=== PATIENT | female | born 1990 | race Caucasian/White ===

== ENCOUNTER 2016-09-09 02:45 | Emergency (ER) | payer MEDICAID ==
[~2016-09-09] VITALS: Ht 162.6 cm; Wt 60.8 kg
[2016-09-09 03:03] VITALS: BP 109/53
[2016-09-09] MEDS ORDERED: PRON INH (03:08)
--- NOTE | 2016-09-09 03:10 | NUR ---
PT TAKEN TO BED 4
--- NOTE | 2016-09-09 03:12 | NUR ---
Dr. Thompson evaluating patient at bedside.
--- NOTE | 2016-09-09 03:14 | NUR ---
PT BIB FAMILY C/O RT EYE PAIN X 1 DAY, INSOMINA X 2-SMOKED CRYSTAL METH, MARIJUANA. PAIN 8/10. PT DENIES N/V/D; SKIN IS INTACT, PINK/WARM/DRY; AAOX4, PERRL-RT EYE RED WITH DISCHARGE NOTED, WITH EVEN AND STEADY GAIT; LUNGS CLEAR BL, BREATHING UNLABORED; HR EVEN AND REGULAR, BL PERIPHERAL PULSES PRESENT; BS ACTIVE X4, NO TENDERNESS TO PALPATION. PT DENIES ANY FEVER, CP, SOB, OR COUGH AT THIS TIME; PT STATES 8/10 PAIN AT THIS TIME; VSS; PATIENT POSITIONED FOR COMFORT; HOB ELEVATED; BEDRAILS UP X2; BED DOWN. ER MD TO SONYA.
[2016-09-09 03:26] VITALS: BP 109/53
== END 2016-09-09 03:27 | disposition home or self-care (01) ==
LOC: MED 02:45
DX: B30.9 Viral conjunctivitis, unspecified (principal); F17.200 Nicotine dependence, unspecified, uncomplicated
CPT/HCPCS: 99282